=== PATIENT | male | born 1965 | race African-American/Black ===

== ENCOUNTER → 2016-08-22 | Outpatient (CLI) | payer OTHER ==
[~2016-08-22] MED LIST: BP MED; CLARITIN10 MG PO; COLSALIDE IMPR0.6 MG PO; FAMOTIDINE20 M1 PO; HYDROCODONE BIT1 T11 PO; KEFLEX500 MG PO; METFORMIN500 MG PO; NORVASC5 MG PO; VICODIN 5/500 505 MG PO; VITAMIN D50000 I3 PO
[2016-08-22 09:39] LABS: BASO # 0.1 10*3/uL (0.0-0.1); BASO % 0.9 % (0.0-1.0); EOS # 0.2 10*3/uL (0.0-0.4); EOS % 3.6 % (1.0-4.0); HEMATOCRIT 41.2 % (42.0-52.0); HEMOGLOBIN 14.1 g/dl (14.0-18.0); LYMPH # 2.9 10*3/uL (1.3-4.4); LYMPH % 43.2 % (27.0-41.0); MEAN CELL VOLUME 86.2 fl (80.0-94.0); MEAN CORPUSCULAR HGB 29.5 pg (27.0-31.0); MEAN CORPUSCULAR HGB CONC 34.2 g/dl (33.0-37.0); MEAN PLATELET VOLUME 10.3 fl (9.6-12.3); MONO # 0.6 10*3/uL (0.1-1.0); MONO % 8.7 % (3.0-9.0); NEUT # 2.9 10*3/uL (2.3-7.9); NEUT % 43.1 % (47.0-73.0); PLATELET COUNT AUTOMATED 242 10*3/uL (130-400); RED BLOOD COUNT 4.78 10*6/uL (4.50-5.90); RED CELL DISTRI WIDTH 14.1 % (0-14.5); WHITE BLOOD COUNT 6.6 10*3/uL (4.8-10.8)
[2016-08-22 09:40] LABS: BILIRUBIN NEGATIVE (NEGATIVE); BLOOD NEGATIVE (NEGATIVE); CLARITY CLEAR (CLEAR); COLOR YELLOW (YELLOW); GLUCOSE NEGATIVE (NEGATIVE); KETONE NEGATIVE (NEGATIVE); LEUKO ESTERASE NEGATIVE (NEGATIVE); NITRITE NEGATIVE (NEGATIVE); PROTEIN NEGATIVE (NEGATIVE); UROBILINOGEN 0.2 E.U./dl (0.2-1.0)
[2016-08-22 10:01] LABS: HEMOGLOBIN A1c 6.3 % (4.8-5.6)
[2016-08-22 10:11] LABS: ALBUMIN 3.8 gm/dl (3.1-4.5); BILIRUBIN, TOTAL 0.5 mg/dl (0.2-1.0); BUN 14 mg/dl (7-24); CARBON DIOXIDE 24 mmol/L (21-32); CHLORIDE 104 mmol/L (98-107); CHOLESTEROL 178 mg/dL (<200); EST GLOM FILT AFRICAN AMERICAN > 60 ml/min; GLUCOSE 99 mg/dL (65-99); POTASSIUM 4.1 mmol/L (3.5-5.1); SGOT/AST 22 IU/L (3-35); SGPT/ALT 40 U/L (12-78); SODIUM 138 mmol/L (136-145); TOTAL PROTEIN 7.7 gm/dL (6.4-8.2); TRIGLYCERIDES 272 mg/dl (<150); VLDL CHOLESTEROL 54 mg/dL (6-40)
[2016-08-22 10:20] LABS: ALKALINE PHOSPHATASE 94 U/L (45-117); HDL CHOLESTEROL 63 mg/dl (40-60); LDL CHOLESTEROL 61 mg/dL (9-159)
[2016-08-22 10:39] LABS: FOLIC ACID 19.22 ng/mL (>5.38); VITAMIN D, 25-HYDROXY 20.1 ng/mL (30-100)
[2016-08-22 10:52] LABS: BACTERIA TRACE; EPITHELIAL CELLS 0-2; MUCOUS TRACE
== END | disposition home or self-care (01) ==
LOC: LAB 09:12
PROVIDERS: Nurse Practitioner Gerontology
DX: I10 Essential (primary) hypertension (principal)

== ENCOUNTER 2020-09-24 14:36 | Emergency (ER) | payer OTHER ==
[~2020-09-24] VITALS: Ht 182.8 cm; Wt 158.8 kg
== END 2020-09-24 16:39 | disposition home or self-care (01) ==
LOC: ED 14:36
DX: Z20.3 Contact with and (suspected) exposure to rabies (principal); Z23 Encounter for immunization; E11.9 Type 2 diabetes mellitus without complications; Z88.5 Allergy status to narcotic agent; Z79.899 Other long term (current) drug therapy; Z98.890 Other specified postprocedural states

== ENCOUNTER 2020-09-27 14:47 | Emergency (ER) | payer OTHER ==
[~2020-09-27] VITALS: Ht 193 cm; Wt 140.6 kg
== END 2020-09-27 16:34 | disposition home or self-care (01) ==
LOC: ED 14:47
DX: Z23 Encounter for immunization (principal); Z88.5 Allergy status to narcotic agent; Z79.899 Other long term (current) drug therapy

== ENCOUNTER 2020-10-01 14:44 | Emergency (ER) | payer OTHER ==
[~2020-10-01] VITALS: Ht 182.8 cm; Wt 158.8 kg
== END 2020-10-01 15:45 | disposition home or self-care (01) ==
LOC: ED 14:44
DX: Z23 Encounter for immunization (principal); Z88.6 Allergy status to analgesic agent; Z79.899 Other long term (current) drug therapy

== ENCOUNTER 2020-10-08 14:46 | Emergency (ER) | payer OTHER ==
[~2020-10-08] VITALS: Wt 158.8 kg
== END 2020-10-08 15:31 | disposition home or self-care (01) ==
LOC: ED 14:46
DX: Z23 Encounter for immunization (principal); Z88.6 Allergy status to analgesic agent; Z79.899 Other long term (current) drug therapy